=== PATIENT | female | born 1990 | race Caucasian/White ===

== ENCOUNTER 2019-11-19 10:35 | Day surgery (SDC) | payer BC ==
[~2019-11-19] VITALS: Ht 152.4 cm; Wt 63.5 kg
[2019-11-19] MEDS ORDERED: LACTATED RINGERS 1000ML IV SCH (11:15)
[2019-11-19] MEDS ORDERED: CEFAZOLIN SODIUM 1 GM VIAL IVP PRN (11:15)
[2019-11-19 11:30] LABS: BASOPHILS % (AUTO) 0.2 % (0.0-5.0); EOSINOPHILS % (AUTO) 0.3 % (0.0-8.0); HEMATOCRIT 24.3 % (36-48); LYMPHOCYTES % (AUTO) 12.5 % (21.0-51.0); MEAN CORPUSCULAR HEMOGLOBIN 30.8 pg (27.0-33.0); MEAN CORPUSCULAR HGB CONC 33.3 g/dL (32.0-36.0); MEAN CORPUSCULAR VOLUME 92.4 fL (79-99); MONOCYTES % (AUTO) 5.1 % (3.0-13.0); NEUTROPHILS % (AUTO) 81.4 % (40.0-77.0); PLATELET COUNT (AUTO) 212 K/uL (130-400); RED BLOOD CELL COUNT(AUTO) 2.63 MIL/uL (4.00-5.50); RED CELL DISTRIBUTION WIDTH 11.7 % (11.0-15.5); WHITE BLOOD COUNT (AUTO) 10.7 K/uL (4.8-10.8)
[2019-11-19] MEDS ORDERED: FENTANYL CITRATE PF 50 MCG/1 ML 2ML VIAL ONE (11:59)
[2019-11-19] MEDS ORDERED: CEFAZOLIN SODIUM 1 GM VIAL IVP ONE (12:10)
[2019-11-19] MEDS ORDERED: MIDAZOLAM HCL 1 MG/ML 2ML VIAL ONE (12:24)
[2019-11-19] MEDS ORDERED: OXYTOCIN 10 USP UNITS/ML ONE (12:24)
[2019-11-19] MEDS ORDERED: KETOROLAC TROMETHAMINE 30MG/ML ONE (12:44)
== END 2019-11-19 16:25 | disposition home or self-care (01) ==
LOC: LDH 10:35 → WSO 10:35
PROVIDERS: ATTEND Obstetrics & Gynecology
DX: O03.4 Incomplete spontaneous abortion without complication (principal)
CPT/HCPCS: 36415; 59812; 85025; 86850; 86900; 86901; 88305; A4351; J0690 ×2; J1885; J2250; J2590; J3010; J7030; J7120; G0378